=== PATIENT | male | born 1985 | race African-American/Black ===

== ENCOUNTER 2021-11-12 11:54 | Emergency (ER) | payer OTHER, MEDICARE ==
[~2021-11-12] VITALS: Ht 188 cm; Wt 102.0 kg
[2021-11-12] MEDS ORDERED: KETOROLAC 60 MG/2 ML VIAL. IM ONE (12:30)
[2021-11-12] MEDS ORDERED: ORPHENADRINE CITRATE 60 MG/2 ML VIAL. IM ONE (12:30)
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
[2021-11-12 14:05] VITALS: BP 136/78
== END 2021-11-12 14:05 | disposition home or self-care (01) ==
LOC: ER 11:54
DX: S00.93XA Contusion of unspecified part of head, initial encounter (principal); S10.93XA Contusion of unspecified part of neck, initial encounter; S60.222A Contusion of left hand, initial encounter; S60.221A Contusion of right hand, initial encounter; S80.02XA Contusion of left knee, initial encounter; W17.2XXA Fall into hole, initial encounter; Y93.89 Activity, other specified; Y92.89 Other specified places as the place of occurrence of the external cause; Y99.8 Other external cause status
CPT/HCPCS: 70450; 72125; 73100; 73130; 73564; 96372; 99284; J1885; J2360